=== PATIENT | male | born 1990 | race Caucasian/White ===

== ENCOUNTER → 2018-01-31 | Outpatient (CLI) | payer OTHER ==
[2018-01-31 16:05] LABS: ADD MAN DIFF? NO
[2018-01-31 16:13] LABS: BASO # 0.1 x10^3/uL (0.0-0.2); BASO % 1 % (0-3); EOS # 0.3 x10^3/uL (0.0-0.7); EOS % 5 % (0-3); HEMATOCRIT 44.3 % (39.0-53.0); HEMOGLOBIN 15.7 g/dL (13.0-17.5); LYMPH % 30 % (24-48); MEAN CORPUSCULAR HEMOGLOBIN 33 pg (25-35); MEAN CORPUSCULAR HGB CONC 36 g/dL (31-37); MEAN CORPUSCULAR VOLUME 93 fL (79-100); MONO % 15 % (0-9); NEUT # 3.3 x10^3uL (1.8-7.7); NEUT % 50 % (31-73); PLATELET COUNT 229 x10^3/uL (140-400); RED BLOOD COUNT 4.79 x10^6/uL (4.30-5.70); WHITE BLOOD COUNT 6.7 x10^3/uL (4.0-11.0)
[2018-01-31 16:30] LABS: ALBUMIN 4.2 g/dL (3.4-5.0); ALBUMIN/GLOBULIN RATIO 1.3 (1.0-1.7); ALK PHOS 57 U/L (46-116); ALT (SGPT) 23 U/L (16-63); ANION GAP 7 (6-14); AST (SGOT) 26 U/L (15-37); BARBITURATES NEG (NEG); BENZODIAZEPINES NEG (NEG); BLOOD UREA NITROGEN 13 mg/dL (8-26); BUN/CREATININE RATIO 14 (6-20); CALCIUM 9.1 mg/dL (8.5-10.1); CANNABINOIDS NEG (NEG); CARBON DIOXIDE 30 mmol/L (21-32); CHLORIDE 104 mmol/L (98-107); COCAINE NEG (NEG); CREATININE 0.9 mg/dL (0.7-1.3); GFR 101.2; GLUCOSE 88 mg/dL (70-99); METHADONE NEG (NEG); OPIATES NEG (NEG); PHENCYCLIDINE NEG (NEG); POTASSIUM 3.8 mmol/L (3.5-5.1); SODIUM 141 mmol/L (136-145); TOTAL PROTEIN 7.5 g/dL (6.4-8.2)
[2018-01-31 16:31] LABS: AMPHETAMINE/METHAMPHETAMINE NEG (NEG); ETHANOL, URINE NEG (NEG)
[2018-01-31 16:39] LABS: THYROID STIM HORMONE (TSH) 1.118 uIU/mL (0.358-3.74)
[2018-01-31 16:55] LABS: VITAMIN-B12 576 pg/mL (247-911)
== END | disposition home or self-care (01) ==
LOC: LAB 15:47
DX: R47.89 Other speech disturbances (principal)
CPT/HCPCS: 36415; 80053; 80307; 82607; 84443; 85025

== ENCOUNTER → 2018-02-19 | Outpatient (CLI) | payer OTHER ==
--- NOTE | 2018-02-20 18:06 | EEG ---
DATE OF SERVICE: 02/19/2018 EEG NUMBER: [id number]. OBJECTIVE: This is a 28-year-old male patient with history of speech problem or seizure like episodes. EEG was requested to evaluate cerebral activity and help rule out seizure. METHODS: Twenty electrodes were applied according to the international 10-20 electrode placement system. EKG monitoring, hyperventilation, intermittent photic stimulation, monopolar and bipolar montages are routinely utilized. The record was obtained on a digital system with video monitoring. FINDINGS: 1. Background: The patient was recorded in the awake, drowsy, and sleep states. The overall background amplitude is 10-30 microvolts. A posterior dominant rhythm of 8-10 Hz is observed. 2. Abnormalities: No specific epileptiform discharge or electrographic seizure is seen. No focal or diffuse slowing. 3. Activation: Hyperventilation was performed with good efforts and normal response. Intermittent photic stimulation was performed with photic driving. No specific epileptiform discharge or electrographic seizure induced by hyperventilation or intermittent photic stimulation. IMPRESSION: This EEG is a normal study for the awake, drowsy, and sleep states. No focal, lateralizing, specific epileptiform discharge or electrographic seizure is seen. CAMRYN SPAULDING MD DR: SALBADOR/miriam JOB#: [id number] / [id number] JASMINA
== END | disposition home or self-care (01) ==
LOC: RT 09:02
PROVIDERS: ATTEND Psychiatry & Neurology Neurology
DX: R56.9 Unspecified convulsions (principal)
CPT/HCPCS: 95816

== ENCOUNTER → 2018-02-19 | Outpatient (CLI) | payer OTHER ==
--- NOTE | 2018-02-19 09:03 | RAD ---
MRI of the brain without contrast 02/19/2018 Clinical History: Speech difficulty for 2 months. Technique: Unenhanced T1-weighted sagittal and axial, T2-weighted axial and coronal and FLAIR, gradient echo and diffusion-weighted axial images of the brain were obtained. Findings: The ventricles and sulci are within normal limits in size and configuration. No area of significant abnormal signal intensity is seen involving the brain parenchyma. No extra-axial fluid collection is seen. There is no MRI evidence of acute ischemia/infarction. Mild to moderate mucosal thickening in seen scattered throughout the paranasal sinuses. There are minimal bilateral mastoid effusions. Normal flow voids are seen within the major vascular structures surrounding the brain parenchyma. Impression: 1. Negative MRI of the brain. 2. Mild paranasal sinus and mastoid disease. Electronically signed by: Kenneth Villalobos MD (02/19/2018 8:59 AM) [id number]
== END | disposition home or self-care (01) ==
LOC: MRI 07:53
PROVIDERS: ATTEND Psychiatry & Neurology Neurology
DX: R47.89 Other speech disturbances (principal)
CPT/HCPCS: 70551